=== PATIENT | male | born 1990 | race African-American/Black ===

== ENCOUNTER 2023-08-29 10:39 | Emergency (ER) | payer MEDICAID ==
[~2023-08-29] VITALS: Ht 182.9 cm; Wt 68.5 kg
[2023-08-29] MEDS ORDERED: DOXYCYCLINE HYCLATE (100 MG) 100 MG TABLET PO ONE (13:30)
[2023-08-29] MEDS ORDERED: HYDROCODONE/APAP 5/325MG TABLET PO ONE (13:30)
[2023-08-29] MEDS ORDERED: TDAP [DIPH/PERTUSSIS/TET] 0.5 ML VIAL IM ONE ×2 (13:30→13:37)
[2023-08-29] MEDS ORDERED: DOXYCYCLINE HYCLATE (100 MG) 100 MG TABLET ONE (13:37)
[2023-08-29] MEDS ORDERED: HYDROCODONE/APAP 5/325MG TABLET ONE (13:37)
[2023-08-29] MEDS ORDERED: LIDOCAINE 1%-EPI 1:200,000 SDV 10 ML VIAL IJ ONE (15:00)
[2023-08-29] MEDS ORDERED: DOXY-326 PO (15:57)
[2023-08-29] MEDS ORDERED: METR500T PO (15:57)
[2023-08-29] MEDS ORDERED: BACITRACIN ZINC OINT PACKET 1 EA PACKET TP ONE (16:00)
[2023-08-29] MEDS ORDERED: MUPI22OI2 TP (16:01)
[2023-08-29 16:19] VITALS: BP 130/77; TEMP 98.7; O2SAT 100
== END 2023-08-29 16:20 | disposition home or self-care (01) ==
LOC: ER 10:43
DX: S31.21XA Laceration without foreign body of penis, initial encounter (principal); S61.213A Laceration without foreign body of left middle finger without damage to nail, initial encounter; Z79.899 Other long term (current) drug therapy; Z60.2 Problems related to living alone; W54.0XXA Bitten by dog, initial encounter; Y93.89 Activity, other specified; Y92.89 Other specified places as the place of occurrence of the external cause; Y99.8 Other external cause status
CPT/HCPCS: 99284; 90471; 90715; J3490; A6403 ×2